=== PATIENT | male | born 2005 | race Caucasian/White ===

== ENCOUNTER 2025-05-27 00:01 | Emergency (ER) | payer BC ==
[~2025-05-27] VITALS: Ht 190.5 cm; Wt 96.5 kg
[2025-05-27] MEDS: predniSONE 20 MG TAB PO ONE (06:38)
[2025-05-27] MEDS: FAMOTIDINE 20 MG TAB PO ONE (06:38)
[2025-05-27] MEDS ORDERED: PEPC1TAB5 PO (08:33)
[2025-05-27] MEDS ORDERED: PRED20TA PO (08:33)
[2025-05-27] MEDS ORDERED: CETI10CA2 PO (08:33)
[2025-05-27 08:46] VITALS: BP 124/58; TEMP 97.8; O2SAT 99
[2025-05-27] MEDS ORDERED: CETI-24 PO (09:35)
== END 2025-05-27 08:51 | disposition home or self-care (01) ==
LOC: M ED 00:01
DX: L29.9 Pruritus, unspecified (principal); L50.9 Urticaria, unspecified; Z79.899 Other long term (current) drug therapy
CPT/HCPCS: 87486; 87581; 87633; 87798; 87880; 99284; J7512